=== PATIENT | male | born 1945 | race Caucasian/White ===

== ENCOUNTER → 2018-01-11 | Outpatient (CLI) | payer OTHER ==
[~2018-01-11] MED LIST: ALLO100T PO; AMLO10TA2 PO; COLC1CAP3 PO; FINA5TAB2 PO; FLUT50SP EACH NARE; HYDR-3583 PO; LEVO125T4 PO; METO1TAB9 PO; MULT-315 PO; NIAC500T5 PO; TAMS0.4C4 PO; TRIAM.1%T TOPICAL; WALKER WHEELS/F1 MIS
[2018-01-11 09:14] LABS: AUTOMATED NEUTROPHIL # 3.2 TH/MM3 (1.8-7.7); BASOPHIL # 0.1 TH/MM3 (0-0.2); BASOPHIL % 0.9 % (0.0-2.0); EOSINOPHIL # 0.2 TH/MM3 (0-0.4); EOSINOPHIL % 2.9 % (0.0-4.0); HEMATOCRIT 43.5 % (39.0-51.0); HEMOGLOBIN 14.6 GM/DL (13.0-17.0); LYMPH % 30.4 % (9.0-44.0); LYMPHOCYTE # 1.8 TH/MM3 (1.0-4.8); MEAN CORPUSCULAR HGB CONC 33.7 % (32.0-36.0); MONO % 10.3 % (0.0-8.0); MONOCYTE # 0.6 TH/MM3 (0-0.9); NEUT % 55.5 % (16.0-70.0); PLATELET COUNT 188 TH/MM3 (150-450); RED BLOOD COUNT 4.57 MIL/MM3 (4.50-5.90); RED CELL DISTRIBUTION WIDTH 13.3 % (11.6-17.2); WHITE BLOOD COUNT 5.8 TH/MM3 (4.0-11.0)
[2018-01-11 09:27] LABS: PROTHROMBIN TIME - PATIENT 10.5 SEC (9.8-11.6)
[2018-01-11 09:55] LABS: ALBUMIN 3.8 GM/DL (3.4-5.0); ALT (GPT) 22 U/L (12-78); AST (GOT) 23 U/L (15-37); BICARBONATE 24.9 MEQ/L (21.0-32.0); BLOOD UREA NITROGEN 24 MG/DL (7-18); CALCIUM 8.3 MG/DL (8.5-10.1); CHLORIDE 108 MEQ/L (98-107); GLOMERULAR FILTRATION RATE 43 ML/MIN (>89); GLUCOSE,FASTING 101 MG/DL (74-99); SODIUM (NA) 142 MEQ/L (136-145)
--- NOTE | 2018-01-11 09:56 | RADRPT ---
EXAM DATE: 01/11/2018 9:51 AM EDT AGE/SEX: 72 years / Male INDICATIONS: Evaluate for pneumonia, pneumothorax, or communicable disease. Pre-op cervical fusion. CLINICAL DATA: This is the patient's initial encounter. Patient reports that signs and symptoms have been present for 1 day and indicates a pain score of 0/10. MEDICAL/SURGICAL HISTORY: None. None. COMPARISON: No prior exams available for comparison. FINDINGS: PA and lateral views of the chest demonstrate the lungs to be symmetrically aerated without evidence of mass, infiltrate or effusion. The cardiomediastinal contours are unremarkable. Osseous structures are intact. CONCLUSION: No acute intrathoracic disease. Electronically signed by: Apolinar Reich MD 01/11/2018 9:54 AM EDT
[2018-01-11 09:58] LABS: ALKALINE PHOSPHATASE 64 U/L (45-117); TOTAL BILIRUBIN ADULT 0.6 MG/DL (0.2-1.0); TOTAL PROTEIN 7.4 GM/DL (6.4-8.2)
[2018-01-11 10:55] LABS: BILIRUBIN, URINE NEG (NEG); BLOOD, URINE NEG (NEG); GLUCOSE,URINE NEG (NEG); KETONE, URINE NEG (NEG); NITRITE,URINE NEG (NEG); SQUAMOUS EPITHELIAL CELL URINE <1 /hpf (0-5); URINE COLOR YELLOW (YELLW/STRAW); URINE LEUKOCYTE ESTERASE NEG (NEG)
--- NOTE | 2018-01-12 14:15 | EKG ---
Date Performed: 01/11/2018 Time Performed: 09:00:01 PTAGE: 72 years EKG: SINUS BRADYCARDIA INCOMPLETE RIGHT BUNDLE BRANCH BLOCK BORDERLINE ECG NO PREVIOUS TRACING DOCTOR: Clarence Segovia Interpretating Date/Time 01/12/2018 14:13:35
== END ==
LOC: CPRE 08:21
PROVIDERS: ATTEND Neurological Surgery
DX: Z01.810 Encounter for preprocedural cardiovascular examination (principal); Z01.811 Encounter for preprocedural respiratory examination; Z01.812 Encounter for preprocedural laboratory examination; Z01.818 Encounter for other preprocedural examination; M50.30 Other cervical disc degeneration, unspecified cervical region; R94.31 Abnormal electrocardiogram [ECG] [EKG]
CPT/HCPCS: 36415; 71046; 80053; 81001; 85025; 85610; 85730; 87640; 87641; 93005

== ENCOUNTER 2018-01-12 08:57 | Observation (INO) | payer OTHER ==
[~2018-01-12] VITALS: Ht 182.9 cm; Wt 123.0 kg
[~2018-01-12 08:57] MED LIST changes: +GELFOAM SIZE 100 ONE; +GENTAMICIN SULFATE 80 MG/2 ML VIAL ONE; -HYDR-3583 PO; +THROMBIN (TOPICAL) 5,000 UNIT VIAL ONE; -WALKER WHEELS/F1 MIS; +ceFAZolin 2 GM PREMIX 0 ML ONE
[2018-01-12] MEDS ORDERED: CHLORHEXIDINE GLUCONATE 2 % 1 PACK (2 CLOTHS) TOPICAL PRN (09:30)
[2018-01-12] MEDS ORDERED: METOPROLOL TARTRATE 25 MG TAB PO PRN (09:30)
[2018-01-12] MEDS ORDERED: SODIUM CHLORID 0.9% 500 ML IV PRN (09:30)
[2018-01-12] MEDS ORDERED: LACTATED RINGER'S 1000 ML IV PRN (09:30)
[2018-01-12] MEDS ORDERED: POVIDONE IODINE 5% (ANTISEPSIS KIT) 4 APPLICATIONS EACH NARE PRN (09:30)
[2018-01-12] MEDS ORDERED: SODIUM CHLOR 0.9% 1000 ML INJ 1,000 ML IV SCH (09:30)
[2018-01-12] MEDS ORDERED: VANCOMYCIN 1 GM/200 ML PREMIX ON-CALL IV SCH (09:30)
[2018-01-12] MEDS ORDERED: ACETAMINOPHEN 1000 MG/100 ML 100 ML IV ONE (12:18)
[2018-01-12] MEDS ORDERED: PROPOFOL 500 MG/50 ML INJ 100 ML ONE (12:18)
[2018-01-12] MEDS ORDERED: ARTIFICIAL TEARS OPTH OINT 3.5 APPLIC/3.5 GM TUBO ONE (12:18)
[2018-01-12] MEDS ORDERED: ceFAZolin INJ 1,000 MG VIAL ONE (13:40)
[2018-01-12] MEDS ORDERED: VANCOMYCIN HCL 1000 MG VIAL ONE (16:48)
[2018-01-12] MEDS ORDERED: cloNIDine HCL 0.1 MG TAB PO/NG PRN (17:45)
[2018-01-12] MEDS ORDERED: CYCLOBENZAPRINE HCL 10 MG TAB PO PRN (17:45)
[2018-01-12] MEDS ORDERED: RESP: ALBUTEROL 2.5 MG/3 ML NEB (PRN) INH (17:45)
[2018-01-12] MEDS ORDERED: MENTHOL LOZENGE BUCCAL PRN (17:45)
[2018-01-12] MEDS ORDERED: ACETAMINOPHEN/HYDROcodone 325 MG/10 MG TAB PO PRN (17:45)
[2018-01-12] MEDS ORDERED: MORPHINE SULFATE 4 MG/ML INJ IV PUSH PRN ×2 (17:45)
[2018-01-12] MEDS ORDERED: MAGNESIUM HYDROXIDE SUSP 30 ML CUP PO PRN (17:45)
[2018-01-12] MEDS ORDERED: ACETAMINOPHEN 325 MG TAB PO PRN (17:45)
[2018-01-12] MEDS ORDERED: ONDANSETRON ODT 4 MG TAB PO PRN (17:45)
[2018-01-12] MEDS ORDERED: COLCHICINE 0.6 MG TAB PO PRN (18:00)
[2018-01-12] MEDS ORDERED: *morphine SULFATE 8 MG/ML PERIprocedure ONLY ONE ×2 (18:19→18:35)
[2018-01-12] MEDS ORDERED: MIDAZOLAM HCL 2 MG/2 ML VIAL ONE (18:21)
--- NOTE | 2018-01-12 20:20 | PD.OP ---
Operative Report Date of Surgery: Jan 12, 2018 Preoperative Diagnosis: Ankylosing spondylitis, cervical spondylosis with radiculopathy Postoperative Diagnosis: Ankylosing spondylitis, cervical spondylosis with radiculopathy Procedure: C5 corpectomy, C4-C6 interbody arthodhesis using PEEK cage filled with autologous bone graft, Simplicity plate and screws. Anesthesia: general endotracheal Surgeon: Luisito Rooney Merchandise Execution Leader(s): Elizabeth Arcos Operation and Findings: INDICATIONS FOR THE PROCEDURE Mr stewart is a 72 year-old male who presented with intractable neck pain and clinical evidence of C5 and C6 upper extremity radiculopathy. He was found to have significant spndylosis with typical changes consistent with ankylosing spondylitis and cervical spinal stenosis. He has failed maximum nonsurgical management including multiple modalities of conservative treatment as well as pain management interventions by an interventional pain specialist. A surgical decompression and arthrodhesis were indicated. The kxku-mo-odra details of the procedure, indications, alternatives, risks and potential complications were fully discussed with the patient. The patient fully understood. All The questions were answered. No guarantees were given. The patient voiced requesting the procedure and provided informed consents. The patient was offered the alternative of delaying the procedure and continuing with nonsurgical management. DETAILS OF THE SURGICAL PROCEDURE After the induction of general anesthesia, endotracheal intubation was performed. A Page catheter, bilateral JAKE hose, and sequential compression devices were placed and kept throughout the procedure. Placement of electrodes for neurophysiological monitoring of the somatosensorial evoked potentials. motor evoked potentials, and EMG as well as laryngeal nerve monitoring was achieved. The patient was positioned supine on a Jean-Pierre table with the head over a gel doughnut. All pressure points were carefully padded with eggcrate mattress. The eyes were tapped shut after ointment was applied by the anesthesiologist to prevent corneal abrasion. A Kelvin hugger was placed over the exposed lower body to maintain control of the core body temperature. The electrophysiological team placed the needles and electrodes in their proper location and baseline SSEP's and motor evoked potentials were registered prior and after positioning and endotracheal intubation. The anterior cervical region was prepped and draped in the usual sterile fashion. A localizing x-ray was performed with a C-arm. The surgical procedure was performed in several steps as follow: SURGICAL APPROACH A skin incision was made along the medial cervical crease with a #10 blade. The dissection was carried out through the platysma exposing the sternocleidomastoid muscle. The cervical spine was approached following the fascial layers of the neck just medial to the anterior border of the sternocleidomastoid and carotid sheath by a combination of sharp and dull dissection. The omohyoid muscle was identified and carefully dissected laterally and the deep cervical fascia was carefully opened. The longus colli muscles were retracted to each side of the midline. A marker was placed at the disc space C5-6 and a cross-table lateral x-ray performed with a C-arm. SURGICAL DECOMPRESSION In order to decompress the anterior surface of the spinal cord it was necessary to preform a microsurgical resection of the disk at C4-5 and C5-6. At this point in the procedure the operating microscope was draped in the usual sterile fashion and brought to the field. The rest of the surgical procedure was performed using microdissection technique with the exception of the closure. Under the operative microscopic, a self-retaining retractor was placed underneath the longus colli muscle. The patient had very extensive syndesmophites, causing severe compression of the esophagus. Anterior osteophite spurs were carefully removed with the Leksell. The annulus at C4-5 and C5-6 were incised with a #15 blade and microdiscectomy was then carefully carried out using angled curets and pituitary forceps. The disk spaces were severely collapsed and calcifies, with early evidence of fusion. Holes were made at C4 and C5 with an owl and the vertebral body C5 shattered and fractured. It was abnormally hard and brittle. A corpectomy was necessary Corpectomy At this point in the procedure the operating microscope was draped in the usual sterile fashion and brought to the field. The rest of the surgical procedure was performed using microdissection technique with the exception of the closure. A micro discectomy was initially performed at the superior and inferior disks adjacent to the corpectomy. The corpectomy was then drilled with the TPS drill and the bones obtained were saved for use during the fusion. The mass affect on the anterior surface of the dural sac was carefully relieved by drilling with a TPS drill under high magnification. A complete resection of the vertebral body was achieved. The posterior longitudinal ligament was elevated with an angled curet and removed with a thin footplate 2 mm Kerrison. A bilateral foraminotomy was performed with a Kerrison. The epidural space was assessed with a nerve hook. Interbody arthrodhesis The incision was then irrigated with a large amount of antibiotic solution and the endplates were evenly decorticated with a TPS drill in preparation for the interbody arthrodesis. The interbody arthrodesis was then preformed by carefully impacting a Titanium Mesh cage filled with autologous bone graft to the corpectomy space, and excellent position of the cage was achieved which was confirmed anatomically by fealing the epidural space with a nerve root and radiologically with the isocentric C-arm. Instrumental fixation Then, a Hallmark plate was brought to the field and secured with 14 mm screws. A reasonable purchase was achieved with all screws and the position of the cage, plate and screws, and alignment of the spine was assessed radiologically with the C-arm. Closure The incision was irrigated with antibiotic solution. Hemostasis was achieved with a bipolar. The screws were locked to prevent backing out. A 7 mm Jean-Pierre- Thomas drain was left in the prevertebral space and externalized through a separate stab incision. The incision was then closed in layers. 3-0 Vicryl with interrupted sutures was used to close the platysma and subcutaneous tissue. The skin was closed with 4-0 running subcuticular Vicryl and Dermabond was applied to the skin. The drain was secured with a 3-0 nylon. At the end of the procedure the sponge, needle and instrument counts were all correct. The estimated blood loss was 150 cc. No blood transfusion was given. No intraoperative complications occurred. The patient received prophylactic antibiotics. The patient was then extubated and transferred to the recovery room in stable condition. Luisito Rooney MD Jan 12, 2018 20:20
[2018-01-12 21:00] VITALS: BP 149/69; PULSE 96; RESP 18; TEMP 98.4; O2SAT 96
[2018-01-12] MEDS ORDERED: TAMSULOSIN HCL 0.4 MG CAP PO SCH (21:00)
[2018-01-12] MEDS ORDERED: DO NOT ADM ANY ANTICOAGULANT DRUGS PRN (21:00)
[2018-01-12] MEDS: DOCUSATE SODIUM 100 MG CAP PO SCH (21:42)
[2018-01-12] MEDS: FLUTICASONE PROPIONATE 50 MCG/ACT 16 GM NASAL SPRAY EACH NARE SCH (21:43)
[2018-01-12] MEDS: ceFAZolin 2 GM PREMIX 50 ML IV SCH (21:43)
[2018-01-12] MEDS: DEXAMETHASONE SOD PHOS 4 MG/ML VIAL IV PUSH SCH (21:52)
[2018-01-12] MEDS: ACETAMINOPHEN/HYDROcodone 325 MG/10 MG TAB PO PRN (21:52)
[2018-01-12] MEDS ORDERED: FINASTERIDE 5 MG TAB PO SCH (22:00)
[2018-01-13] VITALS (7 sets, daily range): BP systolic 129–141; BP diastolic 60–76; PULSE 71–93; RESP 17–18; TEMP 98–98.7; O2SAT 93–97
[2018-01-13] MEDS: DEXAMETHASONE SOD PHOS 4 MG/ML VIAL IV PUSH SCH ×3 (04:22→15:40)
[2018-01-13] MEDS: SODIUM CHLOR 0.9% 1000 ML INJ 1,000 ML IV SCH ×2 (05:05→13:45)
[2018-01-13] MEDS ORDERED: LEVOTHYROXINE SODIUM 125 MCG TAB PO SCH (06:00)
[2018-01-13] MEDS: ceFAZolin 2 GM PREMIX 50 ML IV SCH ×2 (06:07→15:40)
[2018-01-13] MEDS: NIACIN 500 MG EXTENDED RELEASE TAB PO SCH (09:00)
[2018-01-13] MEDS ORDERED: ALLOPURINOL 100 MG TAB PO SCH (09:00)
[2018-01-13] MEDS ORDERED: MULTIVITAMIN TAB PO SCH (09:00)
[2018-01-13] MEDS ORDERED: PANTOPRAZOLE SOD 40 MG DELAYED RELEASE TAB PO SCH (09:00)
[2018-01-13] MEDS ORDERED: METOPROLOL SUCCINATE 50 MG EXTENDED RELEASE TAB PO SCH (09:00)
[2018-01-13] MEDS ORDERED: HYDR-3583 PO (09:27)
[2018-01-13] MEDS: DOCUSATE SODIUM 100 MG CAP PO SCH (09:34)
[2018-01-13] MEDS: FLUTICASONE PROPIONATE 50 MCG/ACT 16 GM NASAL SPRAY EACH NARE SCH (09:35)
[2018-01-13] MEDS: ACETAMINOPHEN/HYDROcodone 325 MG/10 MG TAB PO PRN (09:38)
[2018-01-13] MEDS ORDERED: PHENYLEPH/NS 1000 MCG/10 ML SYR IV ONE (12:00)
[2018-01-13] MEDS ORDERED: ePHEDrine/NS 25 MG/5 ML SYRINGE IV ONE (12:00)
[2018-01-13] MEDS ORDERED: ROCURONIUM INJ 50 MG/5 ML SYRINGE IV PUSH ONE (12:00)
[2018-01-13] MEDS ORDERED: GLYCOPYRROLATE 1 MG/5 ML SYRINGE IV PUSH ONE (12:00)
[2018-01-13] MEDS ORDERED: DEXAMETHASONE SOD PHOS 4 MG/ML VIAL IV ONE (12:00)
[2018-01-13] MEDS ORDERED: PROPOFOL 200 MG/20 ML AMP IV ONE (12:00)
[2018-01-13] MEDS ORDERED: PHENYLEPHRINE HCL 10 MG/ML VIAL IV ONE (12:00)
[2018-01-13] MEDS ORDERED: LACTATED RINGER'S 1000 ML INJ 2,000 ML IV ONE (12:00)
[2018-01-13] MEDS ORDERED: ONDANSETRON HCL 4 MG/2 ML VIAL IV ONE (12:00)
[2018-01-13] MEDS ORDERED: LIDOCAINE HCL 1% PF 5 ML SYRINGE OTHER ONE (12:00)
--- NOTE | 2018-01-13 13:39 | HHI.DS ---
Discharge Summary Admission Date Jan 12, 2018 at 17:46 Discharge Date: Jan 13, 2018 Admitting Diagnosis s/p anterior corpectomy with arthrodesis (1) Status post cervical arthrodesis ICD Code: Z98.1 - Arthrodesis status Brief History Mr madrid is a 72 year-old male who presented with intractable neck pain and clinical evidence of C5 and C6 upper extremity radiculopathy. He was found to have significant spndylosis with typical changes consistent with ankylosing spondylitis and cervical spinal stenosis. He has failed maximum nonsurgical management including multiple modalities of conservative treatment as well as pain management interventions by an interventional pain specialist. A surgical decompression and arthrodesis were indicated. Hospital Course Mr. Madrid underwent C5 corpectomy, C4-C6 interbody arthodhesis using PEEK cage filled with autologous bone graft, Simplicity plate and screws on Jan 12, 2018 for Ankylosing spondylitis, cervical spondylosis with radiculopathy. He was discharged home in stable conditions. Pt Condition on Discharge: Stable Discharge Disposition: Discharge Home Discharge Instructions DIET: Follow Instructions for: Heart Healthy Diet ACTIVITIES You can perform: Weight Bearing As [place] New Medications: Walker with Front Wheels (Walker with Front Wheels) 1 Mis Mis EA .XX DIRECTED, #1 0 Refills Hydrocodone/Acetaminophen (Hydrocodone-Acetamin 10-325 mg) 10 Mg-325 Mg Tablet 1 TAB PO Q8HR PRN for PAIN SCALE 1 TO 10, #62 TAB-CAP 0 Refills Continued Medications: Allopurinol (Allopurinol) 100 Mg Tab 100 MG PO DAILY for Gout, #30 TAB 0 Refills Amlodipine (Amlodipine) 10 Mg Tab 10 MG PO DAILY for Blood Pressure Management, #30 TAB 0 Refills Colchicine (Colchicine) 0.6 Mg Cap 0.6 MG PO BID PRN for PAIN SCALE 1 TO 10, CAP 0 Refills Finasteride (Finasteride) 5 Mg Tab 5 MG PO HS for Manage Prostate Problems, #30 TAB 0 Refills Do not crush. Fluticasone Nasal [place] (Fluticasone Nasal [place]) 50 Mcg/Act Naspr 50 MCG EACH NARE BID for Allergy Management, #1 BOTTLE 0 Refills 50 mcg/spray Levothyroxine (Levothyroxine) 125 Mcg Tab 125 MCG PO DAILY for Thyroid, #30 TAB 0 Refills Metoprolol Succinate ER 24 HR (Metoprolol Succinate ER 24 HR) 50 Mg Tab 50 MG PO DAILY, #30 TAB 0 Refills PT REPORTS HE SOMETIMES TAKES EVERY OTHER DAY Multivit-Min/FA/Lycopen/Lutein (Men 50 Plus Multivitamin Tab) 300 Mcg-600 Mcg- 300 Mcg Tablet 1 TAB PO DAILY Niacin (Niacin) 500 Mg Tab 500 MG PO DAILY for Cholesterol Management, #30 TAB 0 Refills Tamsulosin (Tamsulosin) 0.4 Mg Cap 0.4 MG PO HS for Manage Prostate Problems, #30 CAP 0 Refills Ivanna Holly Jan 13, 2018 13:39
--- NOTE | 2018-01-13 13:39 | HHI.DCPOC ---
Discharge Care Plan Diagnosis: (1) Status post cervical arthrodesis Goals to Promote Your Health * To prevent worsening of your condition and complications * To maintain your health at the optimal level Directions to Meet Your Goals Take your medications as prescribed Follow your dietary instruction Follow activity as directed Keep your appointments as scheduled Take your immunizations and boosters as scheduled If your symptoms worsen call your PCP, if no PCP go to Urgent Care Center or Emergency Room Smoking is Dangerous to Your Health. Avoid second hand smoke Call the 24-hour hour crisis hotline for domestic abuse at Ivanna Holly Jan 13, 2018 13:39
[2018-01-13] MEDS ORDERED: WALKER WHEELS/F1 MIS (15:12)
== END 2018-01-13 17:06 | disposition home or self-care (01) ==
LOC: HSDC 08:57 → HSDI 17:46 → N06B 19:39
PROVIDERS: ADMIT Neurological Surgery; ATTEND Neurological Surgery
DX: M47.22 Other spondylosis with radiculopathy, cervical region (principal); M45.9 Ankylosing spondylitis of unspecified sites in spine; E78.00 Pure hypercholesterolemia, unspecified; E66.9 Obesity, unspecified; Z79.899 Other long term (current) drug therapy; M54.2 Cervicalgia
CPT/HCPCS: 00600; 20936; 22551; 22552; 22854; 63081; 76000; 94150; 96365; 96375; 96376; 97162; C1713; G0378; G8987; G8988; J0131; J0690; J1100; J1580; J2250; J2270; J2370; J2405; J3010; J3370; J7030; J7120; L0150; L0172

== ENCOUNTER 2018-08-01 06:56 | Inpatient (IN) ==
--- NOTE | 2018-07-28 15:13 | MH ---
cc: Benitez Goodson MD DATE OF ADMISSION: 08/01/2018 ADMITTING DIAGNOSIS: Osteoarthritic degeneration, left hip, now being admitted for left total hip arthroplasty. HISTORY OF PRESENT ILLNESS: This pleasant 73-year-old male is being admitted today for a left total hip arthroplasty due to severe pain for osteoarthritic degeneration of the left hip. PAST MEDICAL HISTORY: The patient has a history of anxiety, hypertension and back pain. CURRENT MEDICATIONS: 1. Allopurinol. 2. Amlodipine. 3. Colchicine. 4. Finasteride. 5. Fluticasone. 6. Levothyroxine. 7. Metoprolol. 8. Tamsulosin. He states he is prediabetic as well and states he has some numbness under his feet. REVIEW OF SYSTEMS: Noncontributory. FAMILY HISTORY: Noncontributory. SOCIAL HISTORY: Does not smoke or drink. ALLERGIES: NO KNOWN ALLERGIES, BUT HE STATES LATEX GLOVES USED TO GIVE HIM A RASH. PHYSICAL EXAMINATION: GENERAL: We find a 73-year-old male, well-developed, well-nourished, alert and oriented x 3, complaining of pain in his left hip. VITAL SIGNS: Blood pressure 122/68, pulse 81 regular, respirations 18, temperature 97.9, pulse oximetry 98% on room air. HEENT: Eyes PERRLA, EOMI. Ears, nose, mouth clear. NECK: Supple. LUNGS: Clear. HEART: Regular rate. ABDOMEN: Soft, positive bowel sounds, nontender. EXTREMITIES: Reveals left hip to have decreased range of motion. He has some decreased sensation on his undersurface of both feet. Otherwise, the rest of him is neurovascularly intact. IMPRESSION: Severe painful osteoarthritic degeneration of left hip. PLAN: Admission for left total hip arthroplasty today. The patient was given prescription for postoperative pain and anticoagulation control in the office. Plans on going home after surgical stay in the hospital. MD PILY Reynoso/tiffani , 03:00 PM , 03:05 PM
[2018-08-01] MEDS ORDERED: Chlorhexidine Gluconate 2% 1 Pack (2 Cloths) TOPICAL SCH (07:46)
[2018-08-01] MEDS ORDERED: Metoprolol Tartrate 25 MG Tablet PO SCH (07:46)
[2018-08-01] MEDS ORDERED: Vancomycin Inj 1,000 MG in Sodium Chlor 0.9% Inj 250 ML IV.SIG SCH (08:00)
[2018-08-01] MEDS ORDERED: Sodium Chlor 0.9% Inj 500 ML IV.SIG SCH (08:00)
[2018-08-01] MEDS ORDERED: Chlorhexidine 4% Topical 120 APPLIC/120 ML Bottle TOPICAL SCH (08:00)
[2018-08-01] MEDS ORDERED: ceFAZolin 2 GM Premix Inj 2 GM/50 ML PIGGYBACK IV.SIG SCH (08:00)
[2018-08-01] MEDS ORDERED: ceFAZolin Inj 1 GM Vial (Addvantage) IV.SIG ONE (08:44)
[2018-08-01] MEDS ORDERED: SODIUM CHLOR 0.9% IV.SIG SCH (09:00)
[2018-08-01] MEDS ORDERED: TRANEXAMIC ACID IV.SIG SCH (09:00)
[2018-08-01] MEDS ORDERED: Non-Formulary Drug (Omega-3 Fatty Acids-Fish Oil [Fish Oil] 1 CAP) PO SCH (09:00)
[2018-08-01] MEDS ORDERED: Sodium Chlor 0.9% Inj 80 ML, Bupivacaine Liposo PF 1.3% Inj 20 ML, Bupivacaine 0.25% In... P-ARTICULR SCH ×3 (09:00)
[2018-08-01] MEDS ORDERED: Morphine Inj 4 MG/ML Vial IV.PUSH PRN (09:05)
[2018-08-01] MEDS ORDERED: Bisacodyl 10 MG Supp RECTAL PRN (09:05)
[2018-08-01] MEDS ORDERED: Post-op Orders (for Pharmacy) OTHER STA (09:05)
--- NOTE | 2018-08-01 09:11 | P.DCO ---
- Diagnosis (1) Status post total replacement of left hip Status: Acute - Physical Therapy Order: Evaluate and treat, Improve ambulation, Strength and gait training - Home Health Nursing Order: Medical education, Nursing assessment with vital signs - Case Management Consult Case Management Consult-Home Health: Yes - Certification I have seen patient Deepak Madrid on 08/01/18. My clinical findings support the need for the requested home health care services because: Limited ability to care for self, High risk of falls I certify that my clinical findings support that this patient is homebound because: Post-op weakness, Unsteady gait/balance, Unsafe to leave home unassisted, Unable to use public transportation
[2018-08-01] MEDS ORDERED: HYDROmorphone PF Inj 1 MG/ML Ampul ONE (09:36)
[2018-08-01] MEDS ORDERED: Tranexamic Acid Inj 1,000 MG in Sodium Chlor 0.9% Inj 100 ML IV.SIG SCH (12:00)
[2018-08-01] MEDS ORDERED: fentaNYL Citrate Inj 100 MCG/2 ML Ampul ONE (12:27)
[2018-08-01] MEDS ORDERED: *morphine SULFATE 4 MG/ML PERIprocedure ONLY ONE ×2 (12:49→13:05)
--- NOTE | 2018-08-01 13:28 | XR ---
EXAM DATE: 08/01/2018 1:18 PM EST AGE/SEX: 73 years / Male INDICATIONS: Post op, left hip surgery. CLINICAL DATA: This is the patient's initial encounter. Patient reports that signs and symptoms have been present for 1 day and indicates a pain score of 6/10. MEDICAL/SURGICAL HISTORY: None. None. COMPARISON: POI, XR HIP AP AND LAT, LEFT, 10/25/2017. . FINDINGS: The patient is status post a total hip arthroplasty. Prosthesis is well-seated. Alignment is anatomic . A fracture is not appreciated. CONCLUSION: Anatomic alignment. Yasmani Roe MD FACR Electronically signed by: Yasmani Roe MD Board Certified Radiologist 08/01/2018 1:27 PM EST
--- NOTE | 2018-08-01 13:36 | MP ---
cc: Benitez Goodson MD DATE OF OPERATION: 08/01/2018 PREOPERATIVE DIAGNOSIS: Osteoarthritic degeneration of the left hip. POSTOPERATIVE DIAGNOSIS: Osteoarthritic degeneration of the left hip. SURGERY PERFORMED: Left total hip arthroplasty using Aesculap components, size 58 cup, a size 36 mm ceramic head with a short neck, and a size 15 lateralized press-fit stem. No cement utilized. SURGEON: Benitez Goodson MD PANAMA HAT HYDRAULIC PRESS OPERATOR: Isabella Adame APRN ANESTHESIA: General intubation. DRAINS: None. PROCEDURE: The patient was brought to the Operating Room, where after successful induction of spinal anesthesia was placed on the operating room table in the left lateral decubitus position. The left hip, thigh and leg were prepped and draped in the usual manner. A posterolateral approach was then utilized by making an incision over the proximal portion of the femur lateral aspect, carried across the greater trochanter, carried posterior in a curved incision toward the buttock. The incision was carried down through the subcutaneous tissue, through the fibers of the tensor fascia karlee and gluteus dalton to expose the greater trochanteric bursa. This was then removed by sharp and blunt dissection. The hip was then internally rotated to expose the insertions of the short external rotators of the hip and were incised at their insertion into the greater trochanter and reflected posterior to protect the sciatic nerve. These were held with a Charnley retractor to better visualize the hip joint. The capsule was identified and removed by sharp dissection. The hip was then dislocated by internal rotation and flexion of the hip. The femoral calcar was then measured using the trial components for the appropriate length cut of the neck using an oscillating saw. After the cut was made the head was removed. The acetabulum was then approached and measured, the acetabulum reamed with the acetabular reamers. Next, the femoral calcar was approached by first inserting a canal finder followed by rigid reamers, followed by a cookie-cutter to the appropriate size, in this case being a #15. The broach was left in place and a planer used to plane the calcar to a smooth finish. The broach was then removed. The trial components were then inserted into place, the hip reduced, found to track smoothly with no evidence of subluxation or dislocation. All trial components were removed. The wound was irrigated copiously with antibiotic solution and Water Pik. The actual components were then inserted and impacted into place using Aesculap components, size 58 cup, a size 36 mm ceramic head with a short neck, and a size 15 lateralized press-fit stem.. The hip was reduced, found to track smoothly with no evidence of subluxation or dislocation. The wound was irrigated copiously with antibiotic solution, meticulous hemostasis achieved. We used 120 mL of Exparel in the anterior hip joint for extra pain control, staying away from the sciatic nerve, which was identified and protected throughout the procedure. The capsule approximated with interrupted #1 Vicryl and the deep fascia approximated with running #2 Quill. Subcutaneous tissue approximated using 2-0 and 3-0 Quill and Prineo dressing, abduction pillow brace, and knee immobilizer. No drain utilized. Estimated blood loss, 300 mL. Sponge and suture counts were correct. The patient tolerated the procedure well and left the operating room in satisfactory condition. Isabella Adame APRN, was present during the entire procedure to include patient positioning as well as the procedure itself. The medical necessity of a nurse practitioner, first coat operator was indicated in this case due to the surgical complexity of the case itself. The certified surgical technician was working the back table while my surgical lead, RACHELLE was directly assisting me. J. MD PILY Boyle/tomas/mahnaz , 12:00 PM , 12:05 PM
[2018-08-01] MEDS: Metoprolol Tartrate 50 MG Tablet PO SCH ×2 (14:08→21:06)
[2018-08-01] MEDS: Levothyroxine 125 MCG Tablet PO SCH (14:09)
[2018-08-01] MEDS: Finasteride 5 MG Tablet PO SCH (14:09)
[2018-08-01] MEDS: amLODIPine 10 MG Tablet PO SCH (14:09)
[2018-08-01] MEDS: Allopurinol 100 MG Tablet PO SCH (14:10)
--- NOTE | 2018-08-01 14:28 | P.BOP ---
- Preoperative Diagnosis (1) Osteoarthritis of left hip - Postoperative Diagnosis (1) Status post total replacement of left hip Date of procedure: 08/01/18 Procedure: Left Total Hip Arthroplasty Implants: see implant record Anesthesia: GETA Surgeon: Benitez Goodson MD Nuclear Control Operator: Isabella Adame Estimated blood loss (mL): 300 Urine output (mL): 0 (no russell) Pathology: none sent Condition: stable Disposition: PACU
[2018-08-01] MEDS: ceFAZolin 1 GM Premix Inj 1 GM/50 ML PIGGYBACK IV.SIG SCH ×2 (16:40→22:45)
--- NOTE | 2018-08-01 17:42 | P.CON ---
History of Present Illness Service: [facility]ist Consult date: 08/01/18 Reason for Consult: To assist with home medications Primary Care Provider: Jaren Stewart Chief Complaint: Hip pain History of Present Illness: Patient is a very pleasant 73-year-old male with history of hypertension, gout last flare was years ago, deviated nasal septum, BPH hypothyroidism who is admitted under orthopedic service and underwent left total hip arthroplasty. [facility] hospitalist was consulted for management and review of all his home medications. Patient is currently seen postop doing very well very motivated with physical therapy. Patient states that prior to this is ambulatory - Occasionally uses a walker Patient is on the following medications allopurinol 100 mg daily, amlodipine 10 mg daily, colchicine 1.2 mg daily, finasteride 5 mg daily, Synthroid 100 might 25 mcg daily, Lopressor 50 milligrams twice daily, niacin 500 mg daily Flomax 0.4 mg daily Non-smoker, past surgical history includes some ACDF of the neck, heel spur removal, Review of Systems Denies any fever, no weight loss, denies any melena or hematochezia, no leg swelling PMFSH - History History Provided By: Patient - Medical History Medical History: Medical History (Last Reviewed 08/02/18 @ 08:05 by Birgit Gomez) Arthritis Decreased renal function Gout Hypertension Hyperthyroidism - Surgical History Surgical History: Surgical History (Last Reviewed 08/02/18 @ 08:05 by Birgit Gomez) Hx of foot surgery Hx of neck surgery - Tobacco History Second Hand Smoke Exposure: No Tobacco Use In Past 30 Days: No Smoking Status: Never smoker - Alcohol History How Often Do You Have a Drink Containing Alcohol: Never - Substance Use History Substance History: No History of Abuse - Immunization History Tetanus Immunization: Unsure Hx Influenza Vaccine This Season: Yes Medications and Allergies Active Medications: Active Medications Hydrocodone Bitart/Acetaminophen ([place] 7.5/325) 1 tab PO Q4H PRN PRN Reason: PAIN LESS THAN 5 ON SCALE Last Admin: 08/01/18 16:39 Dose: 1 tab Hydrocodone Bitart/Acetaminophen ([place] 7.5/325) 2 tab PO Q6H PRN PRN Reason: PAIN SCALE 5 TO 10 Al Hydroxide/Mg Hydroxide (Milk Of Magnesia Liq) 30 ml PO BID PRN PRN Reason: Mild Constipation Allopurinol (Zyloprim) 100 mg PO DAILY [facility] Last Admin: 08/01/18 14:10 Dose: Not Given Amlodipine Besylate (Norvasc) 10 mg PO DAILY [facility] Last Admin: 08/01/18 14:09 Dose: Not Given Apixaban (Eliquis) 2.5 mg PO BID [facility] Bisacodyl (Dulcolax Supp) 10 mg RECTAL DAILY PRN PRN Reason: SEVERE CONSITIPATION Chlorhexidine Gluconate (Chlorhexidine 2% Cloth) 3 pack TOPICAL FLOOR TECHNICIAN [facility] Stop: 08/01/18 23:59 Last Admin: 08/01/18 07:20 Dose: 3 pack Chlorhexidine Gluconate (Hibiclens 4% Topical) 1 applicatio TOPICAL ONCE [facility] Stop: 08/05/18 07:59 Colchicine (Colcrys) 1.2 mg PO DAILY [facility] Last Admin: 08/01/18 14:09 Dose: Not Given Finasteride (Proscar) 5 mg PO DAILY [facility] Last Admin: 08/01/18 14:09 Dose: Not Given Fluticasone Propionate (Flonase Nasal [place]) 1 spray EACH NARE DAILY [facility] Lactated Ringer's (Lr 1000 Ml Inj) 1,000 mls @ 30 mls/hr IV.SIG .Q24H [facility] Stop: 08/02/18 07:59 Last Admin: 08/01/18 07:33 Dose: 30 mls/hr Sodium Chloride (Ns Inj) 500 mls @ 30 mls/hr IV.SIG .[id number] [facility] Stop: 08/02/18 00:39 Last Admin: 08/01/18 07:52 Dose: Not Given Cefazolin Sodium/Dextrose (Ancef 2 Gm Premix Inj) 2 gm in 50 mls @ 100 mls/hr IV.SIG FLOOR TECHNICIAN [facility] Stop: 08/05/18 07:59 Last Admin: 08/01/18 09:34 Dose: 100 mls/hr Vancomycin HCl 1,000 mg/ (Sodium Chloride) 250 mls @ 250 mls/hr IV.SIG FLOOR TECHNICIAN [facility] Stop: 08/04/18 07:50 Cefazolin Sodium/Dextrose (Ancef 1 Gm Premix Inj) 1 gm in 50 mls @ 100 mls/hr IV.SIG Q6H [facility] Stop: 08/02/18 04:29 Last Admin: 08/01/18 16:40 Dose: 100 mls/hr Lactated Ringer's (Lr 1000 Ml Inj) 1,000 mls @ 80 mls/hr IV.CONT .[id number] [facility] Last Admin: 08/01/18 13:50 Dose: Not Given Tranexamic Acid 1,000 mg/ (Sodium Chloride) 110 mls @ 200 mls/hr IV.SIG ONCE [facility] Stop: 08/01/18 18:00 Last Admin: 08/01/18 12:40 Dose: 200 mls/hr Lactulose (Lactulose Liq) 30 ml PO DAILY PRN PRN Reason: SEVERE CONSITIPATION Levothyroxine Sodium (Synthroid) 125 mcg PO DAILY@0600 [facility] Last Admin: 08/01/18 14:09 Dose: Not Given Metoprolol Tartrate (Lopressor) 25 mg PO FLOOR TECHNICIAN [facility] Stop: 08/01/18 23:59 Last Admin: 08/01/18 08:34 Dose: 25 mg Metoprolol Tartrate (Lopressor) 50 mg PO BID [facility] Last Admin: 08/01/18 14:08 Dose: Not Given Miscellaneous Information ([facility]) 0 each OTHER UNSCH PRN PRN Reason: SEE LABEL COMMENTS Stop: 08/02/18 12:19 Morphine Sulfate (Morphine Inj) 2 mg IV.PUSH Q3H PRN PRN Reason: BREAKTHROUGH PAIN Multivitamins/Minerals (Theragran-M) 1 tab PO BID [facility] Stop: 09/30/18 20:59 Niacin (Niacin) 500 mg PO DAILY [facility] Last Admin: 08/01/18 14:09 Dose: Not Given Ondansetron HCl (Zofran Odt) 4 mg PO Q6H PRN PRN Reason: NAUSEA OR VOMITING Povidone Iodine (Betadine 5% Antisepsis Kit) 1 applicatio EACH NARE FLOOR TECHNICIAN [facility] Stop: 08/01/18 23:59 Last Admin: 08/01/18 07:52 Dose: 1 applicatio Senna/Docusate Sodium ([place]-Colace) 1 tab PO BID [facility] Sennosides (Senokot) 17.2 mg PO BID PRN PRN Reason: Moderate Constipation Sodium Chloride (Ns Flush) 2 ml IV.FLUSH BID [facility] Sodium Chloride (Ns Flush) 2 ml IV.FLUSH PRN PRN PRN Reason: FLUSH AFTER USING IV ACCESS Tamsulosin HCl (Flomax) 0.4 mg PO DAILY [facility] Last Admin: 08/01/18 14:09 Dose: Not Given Allergies Allergy/AdvReac Type Severity Reaction Status Date / Time latex Allergy Severe Rash Verified 08/01/18 07:35 Home Medications Medication Instructions Recorded Confirmed Type allopurinol 100 mg PO DAILY 07/21/18 08/01/18 History amlodipine 10 mg PO DAILY 07/21/18 08/01/18 History colchicine 1.2 mg PO DAILY 07/21/18 08/01/18 History finasteride 5 mg PO DAILY 07/21/18 08/01/18 History fluticasone furoate 1 inh INHALATION DAILY 07/21/18 08/01/18 History levothyroxine 125 mcg PO DAILY 07/21/18 08/01/18 History metoprolol tartrate 50 mg PO BID 07/21/18 08/01/18 History niacin 500 mg PO DAILY 07/21/18 08/01/18 History omega-3 fatty acids-fish oil [Fish 1 cap PO DAILY 07/21/18 08/01/18 History Oil] tamsulosin 0.4 mg PO DAILY 07/21/18 08/01/18 History Physical Exam Vital signs: Vital Signs 08/01/18 07:41 08/01/18 12:17 08/01/18 12:30 Temperature 98.4 F 97.3 F L Pulse Rate 69 73 77 Respiratory Rate 16 20 25 H Blood Pressure 131/72 137/67 125/64 Pulse Oximetry 97 97 94 L 08/01/18 12:45 08/01/18 13:00 08/01/18 13:15 Temperature Pulse Rate 74 74 76 Respiratory Rate 11 L 14 16 Blood Pressure 149/74 H 142/69 H 130/63 Pulse Oximetry 99 95 99 08/01/18 13:30 08/01/18 15:25 Temperature 97.5 F L 97.1 F L Pulse Rate 76 83 Respiratory Rate 15 13 Blood Pressure 133/69 104/60 Pulse Oximetry 100 97 Intake & Output 07/31/18 08/01/18 08/01/18 18:59 06:59 18:59 Intake Total 1400 / 1400 Output Total 300 / 300 Balance 1100 / 1100 Weight 124.6 kg Intake: Anesthesia Amount 1400 / 1400 Output: Estimated Blood Loss 300 / 300 Other: Weight On Admission 123.4 kg Narrative: Awake alert oriented x3 not in any form distress Anicteric sclera Neck supple no nuchal rigidity Lungs no rales no wheezes Regular rhythm Abdomen soft nontender with good bowel sounds Left hip with postop dressing in place Lower extremities no edema good peripheral pulses Results - Labs CBC & Chem 7: 08/02/18 05:39 Labs: Laboratory Results - last 24 hr 08/01/18 07:38 Blood Type O Positive Blood Type Recheck Required Antibody Screen Negative - Imaging Impressions Hip X-Ray 08/01/18 09:05 CONCLUSION: Anatomic alignment. Yasmani Roe MD FACR Assessment and Plan - Plan 73 years old male Status post left Total Hip Arthroplasty August 01, 2089 PT consulted Orthopedic service is following Hypertension continue amlodipine 10 mg daily. Lopressor 50 mg twice a day History of gout in remission. Continue allopurinol 100 mg daily, colchicine 1.2 mg daily History of BPH. Continue finasteride 5 mg daily Flomax 0.4 mg daily History of hypothyroidism. Continue Synthroid 125 mcg daily History of deviated nasal septum patient on nasal spray continue when we get that name Patient started on Eliquis 2.5 mg for DVT prophylaxis Case management consulted for discharge planning.-Patient prefers to go home with home physical therapy. PCP Dr. Stewart
[2018-08-01] MEDS: Multivitamin/Minerals Therapeutic Tablet PO SCH (21:04)
[2018-08-01] MEDS: Senna/Docusate Sodium 8.6/50 MG Tablet PO SCH (21:04)
[2018-08-02] MEDS: ceFAZolin 1 GM Premix Inj 1 GM/50 ML PIGGYBACK IV.SIG SCH (04:55)
[2018-08-02] MEDS: Levothyroxine 125 MCG Tablet PO SCH (06:00)
[2018-08-02 06:23] LABS: Hematocrit 35.5 % (39.0-51.0); Hemoglobin 12.6 gm/dL (13.0-17.0)
--- NOTE | 2018-08-02 08:04 | P.PNOP ---
Subjective Interval history: Pt comfortable without complaints. Physical Exam Vital signs: Vital Signs 08/01/18 12:17 08/01/18 12:30 08/01/18 12:45 Temperature 97.3 F L Pulse Rate 73 77 74 Respiratory Rate 20 25 H 11 L Blood Pressure 137/67 125/64 149/74 H Pulse Oximetry 97 94 L 99 08/01/18 13:00 08/01/18 13:15 08/01/18 13:30 Temperature 97.5 F L Pulse Rate 74 76 76 Respiratory Rate 14 16 15 Blood Pressure 142/69 H 130/63 133/69 Pulse Oximetry 95 99 100 08/01/18 15:25 08/01/18 19:10 08/01/18 23:45 Temperature 97.1 F L 97.5 F L 97.5 F L Pulse Rate 83 92 H 90 Respiratory Rate 13 18 18 Blood Pressure 104/60 130/55 L 130/69 Pulse Oximetry 97 97 99 08/02/18 00:15 08/02/18 03:43 Temperature 98.2 F Pulse Rate 85 Respiratory Rate 18 Blood Pressure 123/66 Pulse Oximetry 95 98 Intake & Output 08/01/18 08/02/18 08/02/18 18:59 06:59 18:59 Intake Total 1450 / 1450 530 / 530 Output Total 300 / 300 Balance 1150 / 1150 530 / 530 Weight 124.6 kg 124.6 kg Intake: IV 50 / 50 50 / 50 Ancef 1 GM Premix Inj 1 gm In 50 / 50 50 / 50 50 ml @ 100 mls/hr IV.SIG Q6H [facility] Rx#:[id number] Oral 480 / 480 Anesthesia Amount 1400 / 1400 Output: Estimated Blood Loss 300 / 300 Other: # Voids 1 1 Date of Last Bowel Movement 07/31/18 # Bowel Movements 0 Weight On Admission 123.4 kg - Constitutional no acute distress Results - Labs CBC & Chem 7: 08/02/18 05:39 Laboratory Results - last 24 hr 08/01/18 08/02/18 07:38 05:39 Hgb 12.6 L Hct 35.5 L Blood Type O Positive Blood Type Recheck Required Antibody Screen Negative - Imaging Impressions Hip X-Ray 08/01/18 09:05 CONCLUSION: Anatomic alignment. Yasmani Roe MD FACR Assessment and Plan - Problem List (1) Status post total replacement of left hip Code(s): Z96.642 - Presence of left artificial hip joint Status: Acute - Attending Attestation Attending Attestation: Dressing dry and intact. NV intact to toes. No calf tenderness. Doing well POD #1. Plan home in PM after PT and radiation.
--- NOTE | 2018-08-02 08:16 | P.PN ---
Subjective Interval history: pain controlled up and ambualted with a walker + flatus, feels likehe is gkoing to have a BM this am Physical Exam Vital signs: Vital Signs 08/01/18 12:17 08/01/18 12:30 08/01/18 12:45 Temperature 97.3 F L Pulse Rate 73 77 74 Respiratory Rate 20 25 H 11 L Blood Pressure 137/67 125/64 149/74 H Pulse Oximetry 97 94 L 99 08/01/18 13:00 08/01/18 13:15 08/01/18 13:30 Temperature 97.5 F L Pulse Rate 74 76 76 Respiratory Rate 14 16 15 Blood Pressure 142/69 H 130/63 133/69 Pulse Oximetry 95 99 100 08/01/18 15:25 08/01/18 19:10 08/01/18 23:45 Temperature 97.1 F L 97.5 F L 97.5 F L Pulse Rate 83 92 H 90 Respiratory Rate 13 18 18 Blood Pressure 104/60 130/55 L 130/69 Pulse Oximetry 97 97 99 08/02/18 00:15 08/02/18 03:43 Temperature 98.2 F Pulse Rate 85 Respiratory Rate 18 Blood Pressure 123/66 Pulse Oximetry 95 98 Intake & Output 08/01/18 08/02/18 08/02/18 18:59 06:59 18:59 Intake Total 1450 / 1450 530 / 530 Output Total 300 / 300 Balance 1150 / 1150 530 / 530 Weight 124.6 kg 124.6 kg Intake: IV 50 / 50 50 / 50 Ancef 1 GM Premix Inj 1 gm In 50 / 50 50 / 50 50 ml @ 100 mls/hr IV.SIG Q6H [facility] Rx#:[id number] Oral 480 / 480 Anesthesia Amount 1400 / 1400 Output: Estimated Blood Loss 300 / 300 Other: # Voids 1 1 Date of Last Bowel Movement 07/31/18 # Bowel Movements 0 Weight On Admission 123.4 kg Narrative: Awake alert oriented x3 not in any form distress Anicteric sclera Neck supple no nuchal rigidity Lungs no rales no wheezes Regular rhythm Abdomen soft nontender with good bowel sounds Left hip with postop dressing in place Lower extremities no edema good peripheral pulses Results - Labs CBC & Chem 7: 08/02/18 05:39 Laboratory Results - last 24 hr 08/01/18 08/02/18 07:38 05:39 Hgb 12.6 L Hct 35.5 L Blood Type Recheck Required Antibody Screen Negative - Imaging Impressions Hip X-Ray 08/01/18 09:05 CONCLUSION: Anatomic alignment. Yasmani Roe MD FACR Assessment and Plan - Plan 73 years old male Status post left Total Hip Arthroplasty - August 01, 2089 PT consult ff Orthopedic service is following referred for post op radiation to prevent recurrent heterotropic ossification Hypertension continue amlodipine 10 mg daily. Lopressor 50 mg twice a day History of gout in remission. Continue allopurinol 100 mg daily, colchicine 1.2 mg daily History of BPH. Continue finasteride 5 mg daily Flomax 0.4 mg daily History of hypothyroidism. Continue Synthroid 125 mcg daily History of deviated nasal septum patient on nasal spray- Fluticansone NS 1 spray daily to each nostril Patient started on Eliquis 2.5 mg for DVT prophylaxis Case management consulted for discharge planning- possibly this pm after seen by PT. Patient prefers to go home with home physical therapy. PCP Dr. Stewart
[2018-08-02] MEDS: amLODIPine 10 MG Tablet PO SCH (08:58)
[2018-08-02] MEDS: Senna/Docusate Sodium 8.6/50 MG Tablet PO SCH (08:58)
[2018-08-02] MEDS: Allopurinol 100 MG Tablet PO SCH (08:58)
[2018-08-02] MEDS: Metoprolol Tartrate 50 MG Tablet PO SCH (08:58)
[2018-08-02] MEDS: Finasteride 5 MG Tablet PO SCH (08:59)
[2018-08-02] MEDS: Multivitamin/Minerals Therapeutic Tablet PO SCH (08:59)
--- NOTE | 2018-08-02 10:22 | P.CON ---
History of Present Illness Service: Radiation oncology Consult date: 08/02/18 Requesting Physician: Sabino Goodson Reason for Consult: Postoperative radiotherapy for HO prevention Primary Care Provider: Jaren Stewart Chief Complaint: Hip pain History of Present Illness: 73-year-old white male with the history of severe pain due to osteoarthritis degeneration of the left hip. Patient underwent total hip arthroplasty. Patient has been recommended by Dr. Goodson to consider postoperative radiotherapy for HO prevention. A consult has been placed for discussion of radiotherapy postoperatively for the patient. Review of Systems Constitutional: Reports body ache(s) Eyes: Denies blind spots, Denies blurry vision, Denies bulging eyes, Denies change in vision, Denies double vision, Denies discharge, Denies dry eyes, Denies floaters, Denies irritation, Denies itchy eyes, Denies loss of vision, Denies pain, Denies requires corrective lenses, Denies sensitivity to light, Denies other Ears, Nose, Mouth, and Throat: Denies abnormal hearing, Denies bleeding gums, Denies bad breath, Denies change in voice, Denies dental pain, Denies difficulty swallowing, Denies dizziness, Denies dry mouth, Denies ear discharge , Denies ear pain, Denies facial pain, Denies headache(s), Denies hearing loss, Denies hoarseness, Denies lip swelling, Denies nosebleed, Denies mouth lesions, Denies mouth pain, Denies nasal congestion, Denies nasal discharge, Denies nasal obstruction, Denies nasal trauma, Denies neck lump, Denies neck pain, Denies nose pain, Denies pain with swallowing, Denies poor balance, Denies post nasal drip, Denies ringing in the ears, Denies sinus pain, Denies sinus pressure , Denies sore throat, Denies throat swelling, Denies tongue swelling, Denies other Cardiovascular: Denies chest pain, Denies chest pain at rest, Denies chest pain with activity, Denies excessive sweating, Denies fainting, Denies fast heart rate, Denies foot swelling, Denies generalized swelling, Denies irregular heart rhythm, Denies leg pain with activity, Denies leg sores, Denies leg swelling, Denies lightheadedness, Denies radiating jaw, neck or arm pain, Denies rapid, pounding, or irregular heartbeat, Denies shortness of breath, Denies shortness of breath with activity, Denies shortness of breath when lying down, Denies shortness of breath causing sudden awakening, Denies slow heart rate, Denies other Respiratory: Denies change in phlegm color, Denies chest congestion, Denies cough, Denies coughing up blood, Denies excessive phlegm production, Denies pain on inspiration, Denies pain with cough, Denies shortness of breath, Denies shortness of breath with activity, Denies snoring, Denies stridor, Denies wheezing, Denies other Gastrointestinal: Denies abdominal pain, Denies belching, Denies black, tarry stools, Denies bloating, Denies bright, red blood in stools, Denies change in bowel habits, Denies constant urge to pass stool, Denies change in stools, Denies coffee ground vomit, Denies constipation, Denies cramping, Denies difficulty swallowing, Denies excessive passing of gas, Denies feeling full early, Denies heartburn, Denies incontinent of stools, Denies loose stools, Denies nausea, Denies pain with swallowing, Denies vomiting, Denies vomiting blood, Denies other Genitourinary: Denies blood in semen, Denies blood in urine, Denies decreased urination, Denies difficulty urinating, Denies difficulty with ejaculations, Denies erectile dysfunction, Denies genital lesions, Denies genital pain, Denies painful urination, Denies side pain, Denies frequent nighttime urination , Denies painful ejaculations, Denies penile discharge, Denies scrotal swelling , Denies testicle lump, Denies testicle pain, Denies urinary frequency, Denies urinary hesitancy, Denies urinary incontinence, Denies urinary urgency, Denies other Musculoskeletal: Reports body aches, Reports joint pain, Reports limited joint movement Skin/Breast: Denies acne, Denies bleeding lesions, Denies boil, Denies breast swelling, Denies breast skin changes, Denies breast pain, Denies breast lump, Denies change in breast shape, Denies change in hair, Denies change in skin color, Denies changing lesions, Denies dry skin, Denies excessive hair growth, Denies hair loss, Denies itching, Denies lesions, Denies nail changes, Denies new lesions, Denies nipple discharge, Denies non-healing lesions, Denies redness , Denies sensitivity to light, Denies rash, Denies skin pain, Denies skin ulcer , Denies sores, Denies stretch garvin, Denies unusual bruising, Denies wounds, Denies yellowing of the skin, Denies other Neurologic: Denies abnormal hearing, Denies abnormal movements, Denies abnormal speech, Denies abnormal walking, Denies behavioral changes, Denies burning sensations, Denies confusion, Denies dizziness, Denies fainting, Denies frequent falls, Denies headache(s), Denies lack of coordination, Denies localized weakness, Denies loss of vision, Denies memory loss, Denies numbness, Denies other visual disturbances, Denies radiating pain, Denies restless legs, Denies convulsions, Denies seizure-like activity, Denies sensory deficit, Denies tingling, Denies tingling/numbness/burning sensations, Denies tremor(s), Denies unsteadiness, Denies weakness, Denies other Psychiatric: Denies abnormal sleep pattern, Denies anxiety, Denies behavioral changes, Denies change in appetite, Denies change in sex drive, Denies confusion , Denies depression, Denies difficulty concentrating, Denies hearing things others do not hear, Denies hopelessness, Denies irritability, Denies lack of enjoyment, Denies memory loss, Denies mood swings, Denies panic attacks, Denies paranoia, Denies seeing things others do not see, Denies sensing things others do not sense, Denies tactile hallucinations, Denies thoughts of hurting/killing others, Denies thoughts of hurting/killing yourself, Denies other Endocrine: Denies cold intolerance, Denies excessive sweating, Denies flushing, Denies heat intolerance, Denies increased hunger, Denies increased thirst, Denies increased urination, Denies rapid, pounding, or irregular heartbeat, Denies other PMFSH - History History Provided By: Patient - Medical History Medical History: Medical History (Last Reviewed 08/02/18 @ 08:05 by Birgit Gomez) Arthritis Decreased renal function Gout Hypertension Hyperthyroidism - Surgical History Surgical History: Surgical History (Last Reviewed 08/02/18 @ 08:05 by Birgit Gomez) Hx of foot surgery Hx of neck surgery - Tobacco History Second Hand Smoke Exposure: No Tobacco Use In Past 30 Days: No Smoking Status: Never smoker - Alcohol History How Often Do You Have a Drink Containing Alcohol: Never - Substance Use History Substance History: No History of Abuse - Immunization History Tetanus Immunization: Unsure Hx Influenza Vaccine This Season: Yes Medications and Allergies Active Medications: Active Medications Hydrocodone Bitart/Acetaminophen ([place] 7.5/325) 1 tab PO Q4H PRN PRN Reason: PAIN LESS THAN 5 ON SCALE Last Admin: 08/02/18 06:59 Dose: 1 tab Hydrocodone Bitart/Acetaminophen ([place] 7.5/325) 2 tab PO Q6H PRN PRN Reason: PAIN SCALE 5 TO 10 Al Hydroxide/Mg Hydroxide (Milk Of Magnyousif Liq) 30 ml PO BID PRN PRN Reason: Mild Constipation Allopurinol (Zyloprim) 100 mg PO DAILY [facility] Last Admin: 08/02/18 08:58 Dose: 100 mg Amlodipine Besylate (Norvasc) 10 mg PO DAILY [facility] Last Admin: 08/02/18 08:58 Dose: 10 mg Apixaban (Eliquis) 2.5 mg PO BID [facility] Last Admin: 08/02/18 08:58 Dose: 2.5 mg Bisacodyl (Dulcolax Supp) 10 mg RECTAL DAILY PRN PRN Reason: SEVERE CONSITIPATION Chlorhexidine Gluconate (Hibiclens 4% Topical) 1 applicatio TOPICAL ONCE [facility] Stop: 08/05/18 07:59 Colchicine (Colcrys) 1.2 mg PO DAILY [facility] Last Admin: 08/01/18 14:09 Dose: Not Given Finasteride (Proscar) 5 mg PO DAILY [facility] Last Admin: 08/02/18 08:59 Dose: 5 mg Fluticasone Propionate (Flonase Nasal [place]) 1 spray EACH NARE DAILY [facility] Cefazolin Sodium/Dextrose (Ancef 2 Gm Premix Inj) 2 gm in 50 mls @ 100 mls/hr IV.SIG [employer]ORDINATOR [facility] Stop: 08/05/18 07:59 Last Admin: 08/01/18 09:34 Dose: 100 mls/hr Vancomycin HCl 1,000 mg/ (Sodium Chloride) 250 mls @ 250 mls/hr IV.SIG [employer] [facility] Stop: 08/04/18 07:50 Lactated Ringer's (Lr 1000 Ml Inj) 1,000 mls @ 80 mls/hr IV.CONT .[id number] [facility] Last Admin: 08/02/18 01:06 Dose: Not Given Lactulose (Lactulose Liq) 30 ml PO DAILY PRN PRN Reason: SEVERE CONSITIPATION Levothyroxine Sodium (Synthroid) 125 mcg PO DAILY@0600 [facility] Last Admin: 08/02/18 06:00 Dose: 125 mcg Metoprolol Tartrate (Lopressor) 50 mg PO BID [facility] Last Admin: 08/02/18 08:58 Dose: 50 mg Miscellaneous Information ([facility]) 0 each OTHER UNSCH PRN PRN Reason: SEE LABEL COMMENTS Stop: 08/02/18 12:19 Morphine Sulfate (Morphine Inj) 2 mg IV.PUSH Q3H PRN PRN Reason: BREAKTHROUGH PAIN Multivitamins/Minerals (Theragran-M) 1 tab PO BID [facility] Stop: 09/30/18 20:59 Last Admin: 08/02/18 08:59 Dose: 1 tab Niacin (Niacin) 500 mg PO DAILY [facility] Last Admin: 08/02/18 09:01 Dose: Not Given Ondansetron HCl (Zofran Odt) 4 mg PO Q6H PRN PRN Reason: NAUSEA OR VOMITING Senna/Docusate Sodium ([place]-Colace) 1 tab PO BID [facility] Last Admin: 08/02/18 08:58 Dose: 1 tab Sennosides (Senokot) 17.2 mg PO BID PRN PRN Reason: Moderate Constipation Sodium Chloride (Ns Flush) 2 ml IV.FLUSH BID [facility] Last Admin: 08/02/18 09:00 Dose: 2 ml Sodium Chloride (Ns Flush) 2 ml IV.FLUSH PRN PRN PRN Reason: FLUSH AFTER USING IV ACCESS Tamsulosin HCl (Flomax) 0.4 mg PO DAILY [facility] Last Admin: 08/02/18 08:59 Dose: 0.4 mg Allergies Allergy/AdvReac Type Severity Reaction Status Date / Time latex Allergy Severe Rash Verified 08/01/18 07:35 Home Medications Medication Instructions Recorded Confirmed Type allopurinol 100 mg PO DAILY 07/21/18 08/01/18 History amlodipine 10 mg PO DAILY 07/21/18 08/01/18 History colchicine 1.2 mg PO DAILY 07/21/18 08/01/18 History finasteride 5 mg PO DAILY 07/21/18 08/01/18 History fluticasone furoate 1 inh INHALATION DAILY 07/21/18 08/01/18 History levothyroxine 125 mcg PO DAILY 07/21/18 08/01/18 History metoprolol tartrate 50 mg PO BID 07/21/18 08/01/18 History niacin 500 mg PO DAILY 07/21/18 08/01/18 History omega-3 fatty acids-fish oil [Fish 1 cap PO DAILY 07/21/18 08/01/18 History Oil] tamsulosin 0.4 mg PO DAILY 07/21/18 08/01/18 History Physical Exam Vital signs: Vital Signs 08/01/18 12:17 08/01/18 12:30 08/01/18 12:45 Temperature 97.3 F L Pulse Rate 73 77 74 Respiratory Rate 20 25 H 11 L Blood Pressure 137/67 125/64 149/74 H Pulse Oximetry 97 94 L 99 08/01/18 13:00 08/01/18 13:15 08/01/18 13:30 Temperature 97.5 F L Pulse Rate 74 76 76 Respiratory Rate 14 16 15 Blood Pressure 142/69 H 130/63 133/69 Pulse Oximetry 95 99 100 08/01/18 15:25 08/01/18 19:10 08/01/18 23:45 Temperature 97.1 F L 97.5 F L 97.5 F L Pulse Rate 83 92 H 90 Respiratory Rate 13 18 18 Blood Pressure 104/60 130/55 L 130/69 Pulse Oximetry 97 97 99 08/02/18 00:15 08/02/18 03:43 08/02/18 08:00 Temperature 98.2 F 98.9 F Pulse Rate 85 90 Respiratory Rate 18 18 Blood Pressure 123/66 125/79 Pulse Oximetry 95 98 98 Intake & Output 08/01/18 08/02/18 08/02/18 18:59 06:59 18:59 Intake Total 1450 / 1450 580 / 580 Output Total 300 / 300 Balance 1150 / 1150 580 / 580 Weight 124.6 kg 124.6 kg Intake: IV 50 / 50 100 / 100 Ancef 1 GM Premix Inj 1 gm In 50 / 50 100 / 100 50 ml @ 100 mls/hr IV.SIG Q6H [facility] Rx#:[id number] Oral 480 / 480 Anesthesia Amount 1400 / 1400 Output: Estimated Blood Loss 300 / 300 Other: # Voids 1 1 Date of Last Bowel Movement 07/31/18 # Bowel Movements 0 Weight On Admission 123.4 kg - Constitutional no acute distress, obese, cooperative - Routine HEENT Exam Head: Present: normocephalic Eye: Present: EOMI ENT: Present: mucous membranes moist, nares patent, external ear normal - Routine Neck Exam Present: supple, tracheal deviation - Routine Respiratory Exam Comments: Lungs clear to auscultation with appropriate ventilatory inspiratory - Routine Cardiovascular Exam Comments: Heart was regular in rate and rhythm with no murmurs - Routine Abdominal Exam Present: soft - Routine Extremities Exam Comments: Lower extremities without edema bilaterally. Surgical scar detected on the left hip. No signs of wound dehiscence infection or cellulitis. No bleeding. - Routine Skin Exam Present: dry, wounds - Routine Neurological Exam Present: alert, oriented X3, moving all extremities, vision grossly intact, hearing grossly intact, normal speech - Routine Psychiatric Exam Present: normal affect, normal thought process, cooperative, good insight, good judgment Results - Labs CBC & Chem 7: 08/02/18 05:39 Labs: Laboratory Results - last 24 hr 08/02/18 05:39 Hgb 12.6 L Hct 35.5 L - Imaging Impressions Hip X-Ray 08/01/18 09:05 CONCLUSION: Anatomic alignment. Yasmani Roe MD FACR Assessment and Plan - Assessment (1) Osteoarthritis of left hip Code(s): M16.12 - Unilateral primary osteoarthritis, left hip Status: Acute - Plan Assessment: 73-year-old white male status post left hip arthroplasty due to severe osteoarthritis. Patient been evaluated for postoperative radiotherapy for HO prevention Plan: Had an extensive discussion with the patient in front of the nurse in regards to the merits of postoperative radiotherapy to the left hip. I discussed alternative treatments including indomethacin use. I agree with the recommendations of Dr. Goodson for postoperative her therapy. I discussed the results of the treatments as well as purpose and alternatives. I discussed side effects. Side effects and complications to include but limited to: Weakness and fatigue, decreased blood counts, erythema of the skin, necrosis of the skin, loss of hair in the treated area, decreased sperm counts, patient advised if he wanted to have children he has to wait at least a year, nausea, vomiting, diarrhea, secondary malignancies, hemorrhoidal flareup. After discussion patient want to move forward with treatments and a consent form was signed. Patient to be simulated now going to be treated at the end of the day. He was advised if I could be of any further assistance at the please let me know. Patient to continue follow-ups with Dr. Goodson.
[2018-08-02 11:48] VITALS: BP 117/57; PULSE 74; RESP 20; TEMP 97.8; O2SAT 95
== END 2018-08-02 18:20 | disposition home health service (06) | DRG 470 ==
LOC: HSDI 06:56 → N06 13:57
PROVIDERS: ADMIT Surgery; ATTEND Surgery
CPT/HCPCS: 73501; 85014; 85018; 86850; 86900; 86901; 94150; 97110; 97116; 97150; 97162; 97166; C1776; C9290; J0131; J0690; J1170; J2250; J2270; J3010; J7120; J8501; L1686; L1830